=== PATIENT | female | born 1995 | race Two or more races ===

== ENCOUNTER 2016-08-18 09:07 | Emergency (ER) | payer MEDICAID ==
[~2016-08-18] VITALS: Ht 162.6 cm; Wt 49.9 kg
[~2016-08-18 09:07] MED LIST: PRENTAB28 PO
[2016-08-18 09:51] LABS: Basophils # (auto) 0 uL; Basophils % (auto) 0.5 % (0.0-2.0); Eosinophils # (auto) 0 uL; Eosinophils % (auto) 0.5 % (0.0-7.0); Hematocrit 34.9 % (36.0-46.0); Hemoglobin 11.5 g/dL (12.2-16.2); Lymphocytes % (auto) 32.2 % (10.0-50.0); Mean Corpuscular Hemoglobin 27.8 pg (28.0-32.0); Mean Corpuscular Volume 84.3 fL (80.0-100.0); Mean Platelet Volume 7.3 fL (7.4-10.4); Monocytes # (auto) 0.3 uL; Monocytes % (auto) 5.4 % (0.0-12.0); Neutrophils # (auto) 3.7 uL; Neutrophils % (auto) 61.4 % (37.0-80.0); Platelet Count (auto) 239 10^3/uL (140-450); Red Cell Distribution Width 12.7 % (11.6-16.0); White Blood Cell 6.1 10^3/uL (4.4-10.8)
[2016-08-18 10:11] LABS: Albumin 3.1 g/dL (3.4-5.0); BUN/Creatinine Ratio 18.6; Bilirubin, Total 0.2 mg/dL (0.2-1.0); Calcium 8.4 mg/dL (8.5-10.1); Potassium 3.6 mmol/L (3.5-5.1); Total Protein 6.1 g/dL (6.4-8.2)
[2016-08-18 11:17] LABS: Urine Bilirubin Negative (Negative); Urine Blood Negative /uL (Negative); Urine Color Yellow (Yellow); Urine Glucose Normal (Normal); Urine Ketone Negative (Negative); Urine Nitrite Negative (Negative); Urine RBC 1 /hpf (0 - 4); Urine Squamous Epithelial Cell FEW /hpf (<5); Urine Urobilinogen Normal (Negative)
[2016-08-18] MEDS ORDERED: SODIUM CHLORIDE 0.9% 1,000 ML IV ONE (11:30)
[2016-08-18 12:30] VITALS: BP 91/40
== END 2016-08-18 14:10 | disposition home or self-care (01) ==
LOC: EDUNIT# 09:07 → ER 09:10
DX: O23.42 Unspecified infection of urinary tract in pregnancy, second trimester (principal); R55 Syncope and collapse; Z3A.14 14 weeks gestation of pregnancy
CPT/HCPCS: 36415; 76805; 80053; 81001; 83735; 84702; 85025; 93005; 94761; 96360

== ENCOUNTER 2016-09-27 21:06 | Emergency (ER) | payer MEDICAID ==
[~2016-09-27] VITALS: Ht 160 cm; Wt 49.9 kg
[2016-09-27 21:57] VITALS: BP 100/63
[2016-09-27 22:22] LABS: Basophils # (auto) 0 uL; Basophils % (auto) 0.4 % (0.0-2.0); Eosinophils # (auto) 0 uL; Eosinophils % (auto) 0.4 % (0.0-7.0); Hematocrit 37.1 % (36.0-46.0); Hemoglobin 12.5 g/dL (12.2-16.2); Lymphocytes # (auto) 1.3 uL; Lymphocytes % (auto) 20.2 % (10.0-50.0); Mean Corpuscular Hemoglobin 29.2 pg (28.0-32.0); Mean Corpuscular Hgb Conc. 33.7 g/dL (32.0-36.0); Mean Corpuscular Volume 86.6 fL (80.0-100.0); Mean Platelet Volume 7.4 fL (7.4-10.4); Monocytes # (auto) 0.4 uL; Monocytes % (auto) 6.4 % (0.0-12.0); Neutrophils # (auto) 4.7 uL; Neutrophils % (auto) 72.6 % (37.0-80.0); Platelet Count (auto) 228 10^3/uL (140-450); Red Cell Distribution Width 14.4 % (11.6-16.0); White Blood Cell 6.5 10^3/uL (4.4-10.8)
[2016-09-27 22:31] LABS: INR 0.96 (0.9-1.15); Partial Thromboplastin Time 26.1 sec (22.64-33.71); Prothrombin Time 9.9 sec (9.37-12.3)
[2016-09-27 22:38] LABS: Albumin 3.3 g/dL (3.4-5.0); BUN/Creatinine Ratio 10.4
[2016-09-27 22:40] LABS: Bilirubin, Total 0.2 mg/dL (0.2-1.0); Total Protein 6.7 g/dL (6.4-8.2)
== END 2016-09-28 01:38 | disposition left against medical advice (07) ==
LOC: ER 21:10
DX: O26.891 Other specified pregnancy related conditions, first trimester (principal); R19.7 Diarrhea, unspecified; R55 Syncope and collapse; O21.9 Vomiting of pregnancy, unspecified; Z3A.19 19 weeks gestation of pregnancy; Z53.21 Procedure and treatment not carried out due to patient leaving prior to being seen by health care provider
CPT/HCPCS: 36415; 80053; 84702; 85025; 85610; 85730; 93005

== ENCOUNTER 2016-12-01 18:30 | Observation (INO) | payer MEDICAID ==
[2016-12-01 19:20] LABS: Urine Bilirubin Negative (Negative); Urine Color Yellow (Yellow); Urine Glucose Normal (Normal); Urine Ketone Negative (Negative); Urine Nitrite Negative (Negative); Urine RBC 162 /hpf (0 - 4); Urine Squamous Epithelial Cell FEW /hpf (<5); Urine Urobilinogen Normal (Negative); Urine pH 7.5 (5.0-8.0)
[2016-12-01 19:25] LABS: Urine Blood 2+ /uL (Negative)
== END 2016-12-01 20:10 | disposition home or self-care (01) | DRG 566 ==
LOC: LDRP 18:30
PROVIDERS: ADMIT Obstetrics & Gynecology; ATTEND Obstetrics & Gynecology
DX: O42.92 Full-term premature rupture of membranes, unspecified as to length of time between rupture and onset of labor (principal); Z3A.29 29 weeks gestation of pregnancy
CPT/HCPCS: 59025; 76815; 80307; 81001; 81002; G0378

== ENCOUNTER 2016-12-09 18:00 | Observation (INO) | payer MEDICAID ==
[~2016-12-09] VITALS: Ht 30.5 cm; Wt 0.5 kg
[2016-12-09] MEDS ORDERED: cefTRIAXone 1GM/50ML D5W 50 ML IV ONE (18:37)
[2016-12-09] MEDS ORDERED: SODIUM CHLORIDE 0.9% 500 ML IV ONE (18:37)
[2016-12-09 19:14] LABS: Urine Bilirubin Negative (Negative); Urine Blood Negative /uL (Negative); Urine Color Yellow (Yellow); Urine Glucose Normal (Normal); Urine Nitrite Negative (Negative); Urine RBC 1 /hpf (0 - 4); Urine Squamous Epithelial Cell FEW /hpf (<5); Urine WBC Clumps PRESENT /hpf (None Seen); Urine pH 6.5 (5.0-8.0)
[2016-12-09 19:15] LABS: Urine Ketone 3+ (Negative)
[2016-12-09 23:45] LABS: Vaginal Trichomonas Not Present; Vaginal WBC Many; Vaginal Yeast None Seen
[2016-12-09 23:46] LABS: Vaginal Bacteria Many; Vaginal Clue Cells None Seen; Vaginal Epithelial Cells Many; Vaginal RBC Rare
== END 2016-12-10 00:20 | disposition home or self-care (01) | DRG 566 ==
LOC: LDRP 18:00
PROVIDERS: ADMIT Specialist; ATTEND Specialist
DX: O26.893 Other specified pregnancy related conditions, third trimester (principal); E86.0 Dehydration; N89.8 Other specified noninflammatory disorders of vagina; R10.9 Unspecified abdominal pain; O47.9 False labor, unspecified; Z3A.30 30 weeks gestation of pregnancy
CPT/HCPCS: 59025; 76815; 80307; 81001; 81002; 87081; 87086; 87210; G0378; J0696; J7030; 96365; 96366

== ENCOUNTER 2017-01-17 09:40 | Inpatient (IN) | payer MEDICAID ==
[~2017-01-17] VITALS: Ht 30.5 cm; Wt 0.5 kg
[2017-01-17] VITALS (9 sets, daily range): BP systolic 90–98; BP diastolic 50–56
[2017-01-17] MEDS ORDERED: LACTATED RINGER'S 1,000 ML IV ONE ×2 (10:45→11:30)
[2017-01-17] MEDS ORDERED: TERBUTALINE SULFATE 1 MG/ML 1ML VIAL SC ONE (10:47)
[2017-01-17] MEDS: TERBUTALINE SULFATE 1 MG/ML 1ML VIAL SC PRN ×2 (11:06→11:57)
[2017-01-17 12:30] LABS: Urine Bilirubin Negative (Negative); Urine Blood Negative /uL (Negative); Urine Color Yellow (Yellow); Urine Glucose Normal (Normal); Urine Ketone 2+ (Negative); Urine Nitrite Negative (Negative); Urine RBC 3 /hpf (0 - 4); Urine Squamous Epithelial Cell FEW /hpf (<5); Urine Urobilinogen Normal (Negative); Urine pH 7.5 (5.0-8.0)
[2017-01-17] MEDS ORDERED: NIFEdipine 10 MG CAP PO SCH (13:12)
[2017-01-17] MEDS ORDERED: MICONAZOLE NITRATE 2 % VAGINAL CREAM 45 GM PV ONE (13:15)
[2017-01-17] MEDS ORDERED: cefTRIAXone 1GM/50ML D5W 50 ML IV ONE ×2 (14:30→15:45)
[2017-01-17] MEDS: SODIUM CHLORIDE 0.9% 1,000 ML IV SCH ×2 (14:57→16:30)
[2017-01-17 15:00] LABS: Basophils # (auto) 0 uL; CONDITION Y; Eosinophils # (auto) 0 uL; Hematocrit 32.7 % (36.0-46.0); Hemoglobin 11.2 g/dL (12.2-16.2); Lymphocytes # (auto) 0.8 uL; Lymphocytes % (auto) 5.5 % (10.0-50.0); Mean Corpuscular Hemoglobin 28.8 pg (28.0-32.0); Mean Corpuscular Hgb Conc. 34.3 g/dL (32.0-36.0); Mean Corpuscular Volume 84.1 fL (80.0-100.0); Mean Platelet Volume 7.4 fL (7.4-10.4); Monocytes # (auto) 0.7 uL; Monocytes % (auto) 5.1 % (0.0-12.0); Neutrophils # (auto) 12.6 uL; Neutrophils % (auto) 89.4 % (37.0-80.0); Platelet Count (auto) 222 10^3/uL (140-450); Red Cell Distribution Width 13.4 % (11.6-16.0); White Blood Cell 14.1 10^3/uL (4.4-10.8)
[2017-01-17] MEDS ORDERED: ACETAMINOPHEN 325 MG TAB PO PRN (15:45)
[2017-01-17] MEDS ORDERED: LACTATED RINGER'S 1,000 ML IV SCH (17:10)
[2017-01-17] MEDS ORDERED: HYDROCORTISONE SOD SUCC 100 MG/2ML INJ VIAL IV ONE (17:17)
[2017-01-17] MEDS ORDERED: fentaNYL CITRATE 100 MCG/2 ML VL ONE (17:17)
[2017-01-17] MEDS ORDERED: PROPOFOL 10 MG/ML 20 ML IV ONE (17:17)
[2017-01-17] MEDS ORDERED: ROCURONIUM 10MG/ML 10ML VIAL IV ONE (17:18)
[2017-01-17] MEDS ORDERED: SUCCINYLCHOLINE CHLORIDE 20 MG/ML 10ML VIAL IV ONE (17:20)
[2017-01-17] MEDS ORDERED: ETOMIDATE (2MG/ML) 20ML VIAL IV ONE (17:50)
[2017-01-17 17:52] LABS: Basophils # (auto) 0 uL; Basophils % (auto) 0.2 % (0.0-2.0); CONDITION Y; Eosinophils # (auto) 0 uL; Hematocrit 34.8 % (36.0-46.0); Hemoglobin 11.9 g/dL (12.2-16.2); Lymphocytes # (auto) 0.6 uL; Lymphocytes % (auto) 5.9 % (10.0-50.0); Mean Corpuscular Hemoglobin 28.6 pg (28.0-32.0); Mean Corpuscular Hgb Conc. 34.1 g/dL (32.0-36.0); Mean Platelet Volume 7.4 fL (7.4-10.4); Monocytes # (auto) 0.3 uL; Monocytes % (auto) 2.3 % (0.0-12.0); Neutrophils # (auto) 10.1 uL; Neutrophils % (auto) 91.6 % (37.0-80.0); Platelet Count (auto) 214 10^3/uL (140-450); Red Cell Distribution Width 13.4 % (11.6-16.0)
[2017-01-17] MEDS ORDERED: PHENYLEPHRINE HCL 10 MG/ML VL ONE (18:05)
[2017-01-17 18:07] LABS: INR 0.95 (0.9-1.15); Prothrombin Time 10.3 sec (9.37-12.3)
[2017-01-17 18:16] LABS: Albumin 2.5 g/dL (3.4-5.0); Bilirubin, Total 0.4 mg/dL (0.2-1.0); Calcium 7.9 mg/dL (8.5-10.1); Potassium 4.1 mmol/L (3.5-5.1); Total Protein 6.5 g/dL (6.4-8.2)
[2017-01-17] MEDS ORDERED: GLYCOPYRROLATE 0.2 MG/ML 1ML VIAL ONE (18:18)
[2017-01-17] MEDS ORDERED: NEOSTIGMINE 1 MG/ML INJ (10mg/10ML VIAL) ONE (18:18)
[2017-01-17] MEDS ORDERED: METOCLOPRAMIDE HCL 5MG/ml INJ 2ml VIAL ONE (18:19)
[2017-01-17] MEDS: LACTATED RINGER'S 1,000 ML IV SCH (18:38)
[2017-01-17] MEDS ORDERED: HYDROmorphone HCL 2 MG/ML VL ONE (18:41)
[2017-01-17] MEDS ORDERED: ONDANSETRON HCL 4 MG/2 ML VIAL IV PRN (18:45)
[2017-01-17] MEDS ORDERED: HYDROmorphone HCL 2 MG/ML VL IV PRN (18:45)
[2017-01-17] MEDS: HYDROmorphone HCL 2 MG/ML VL IV PRN ×2 (18:45→19:30)
[2017-01-17] MEDS ORDERED: ONDANSETRON HCL 4 MG/2 ML VIAL IV ONE (19:15)
[2017-01-17] MEDS ORDERED: OXYTOCIN 10UNIT/ML 1ML VIAL ONE (19:29)
[2017-01-17] MEDS: KETOROLAC TROMETH 30 MG/ML 1ML VIAL IV SCH (23:58)
[2017-01-18] VITALS (8 sets, daily range): BP systolic 86–101; BP diastolic 51–62
[2017-01-18] MEDS: LACTATED RINGER'S 1,000 ML IV SCH ×2 (02:38→10:38)
[2017-01-18] MEDS: KETOROLAC TROMETH 30 MG/ML 1ML VIAL IV SCH ×2 (05:44→14:00)
[2017-01-18 06:09] LABS: Basophils # (auto) 0 uL; CONDITION Y; Eosinophils # (auto) 0 uL; Hematocrit 26.6 % (36.0-46.0); Hemoglobin 9.3 g/dL (12.2-16.2); Lymphocytes # (auto) 1.1 uL; Lymphocytes % (auto) 7.1 % (10.0-50.0); Mean Corpuscular Hemoglobin 29.6 pg (28.0-32.0); Mean Corpuscular Hgb Conc. 34.8 g/dL (32.0-36.0); Mean Platelet Volume 7.4 fL (7.4-10.4); Monocytes # (auto) 0.5 uL; Monocytes % (auto) 3.4 % (0.0-12.0); Neutrophils # (auto) 13.9 uL; Neutrophils % (auto) 89.5 % (37.0-80.0); Platelet Count (auto) 227 10^3/uL (140-450); Red Cell Distribution Width 14.1 % (11.6-16.0); White Blood Cell 15.5 10^3/uL (4.4-10.8)
[2017-01-18] MEDS: cefTRIAXone 1GM/50ML D5W 50 ML IV SCH (09:00)
[2017-01-18] MEDS ORDERED: SIMETHICONE 80 MG CHEWABLE TABLET PO PRN (17:15)
[2017-01-18] MEDS ORDERED: HYDROcodone-ACET 5/325MG TAB PO PRN ×2 (17:15)
[2017-01-18] MEDS ORDERED: IBUPROFEN 800 MG TAB PO PRN (17:15)
[2017-01-18] MEDS: DOCUSATE SOD 100 MG CAP PO SCH (22:22)
[2017-01-18] MEDS: HYDROcodone-ACET 5/325MG TAB PO PRN (22:28)
[2017-01-19] VITALS (7 sets, daily range): BP systolic 81–96; BP diastolic 47–66
[2017-01-19] MEDS: IBUPROFEN 800 MG TAB PO PRN ×2 (05:04→17:05)
[2017-01-19] MEDS: HYDROcodone-ACET 5/325MG TAB PO PRN (07:10)
[2017-01-19] MEDS: cefTRIAXone 1GM/50ML D5W 50 ML IV SCH (09:46)
[2017-01-19] MEDS: DOCUSATE SOD 100 MG CAP PO SCH ×2 (09:46→22:19)
[2017-01-19] MEDS ORDERED: TETANUS-DIPTH-ACEL PERTUSSIS 0.5ML SYRG IM ONE (19:30)
[2017-01-20] MEDS: HYDROcodone-ACET 5/325MG TAB PO PRN ×2 (02:52→08:13)
[2017-01-20 03:57] VITALS: BP 98/64
[2017-01-20 08:00] VITALS: BP 86/52
[2017-01-20] MEDS ORDERED: MEASLES, MUMPS & RUBELLA VAC(MMRII) 0.5ML SC ONE (08:00)
[2017-01-20] MEDS: cefTRIAXone 1GM/50ML D5W 50 ML IV SCH (09:30)
[2017-01-20] MEDS: DOCUSATE SOD 100 MG CAP PO SCH (10:01)
[2017-01-20 12:10] VITALS: BP 100/60
[2017-01-20] MEDS: LACTATED RINGER'S 1,000 ML IV SCH (14:54)
== END 2017-01-20 13:10 | disposition home or self-care (01) | DRG 540 ==
LOC: EDBD 09:40 → OBSVTOIN 09:40 → LDRP 09:40
PROVIDERS: ADMIT Specialist; ATTEND Specialist
PROC: 10D00Z1 Extraction of Products of Conception, Low, Open Approach (ICD-10-PCS; principal; 2017-01-18)
DX: O76 Abnormality in fetal heart rate and rhythm complicating labor and delivery (principal); O41.1230 Chorioamnionitis, third trimester, not applicable or unspecified; O99.824 Streptococcus B carrier state complicating childbirth; Z37.0 Single live birth; Z3A.35 35 weeks gestation of pregnancy; Z23 Encounter for immunization
CPT/HCPCS: 36415; 51702; 59025; 76818; 80053; 81001; 81002; 84443; 85025; 85610; 85730; 86850; 86900; 86901; 87086; 87088; 87186; 90472; 90715; 96365; 96366; 96372; J0330; J0696; J1885; J2704

== ENCOUNTER 2018-09-28 13:10 | Observation (INO) | payer MEDICAID ==
[~2018-09-28] VITALS: Ht 157.5 cm; Wt 56.7 kg
[2018-09-28] MEDS ORDERED: BETAMETHASONE ACET (6MG/ML) 5ML VIAL IM ONE (14:15)
[2018-09-28] MEDS ORDERED: ceFAZolin 1GM/50ML 50 ML IV SCH (14:30)
[2018-09-28] MEDS ORDERED: TERBUTALINE SULFATE 1 MG/ML 1ML VIAL SC SCH (15:45)
[2018-09-28] MEDS ORDERED: LACTATED RINGER'S 1,000 ML IV SCH (18:15)
== END 2018-09-28 18:30 | disposition home or self-care (01) | DRG 566 ==
LOC: LDRP 13:10 → INTOOBSV 15:15 → OBSVTOIN 15:15
PROVIDERS: ADMIT Specialist; ATTEND Specialist
DX: O62.9 Abnormality of forces of labor, unspecified (principal); Z3A.35 35 weeks gestation of pregnancy
CPT/HCPCS: 51702; 59025; 76805; 81002; 96365; 96372; G0378; J0690; J0702; J3105; 96366

== ENCOUNTER 2018-09-29 14:05 | Observation (INO) | payer MEDICAID ==
[2018-09-29] MEDS ORDERED: BETAMETHASONE ACET (6MG/ML) 5ML VIAL IM ONE (14:30)
[2018-09-29] MEDS ORDERED: BETAMETHASONE ACET (6MG/ML) 5ML VIAL ONE (14:31)
== END 2018-09-29 15:00 | disposition home or self-care (01) | DRG 563 ==
LOC: LDRP 14:05
PROVIDERS: ADMIT Specialist; ATTEND Specialist
DX: O60.03 Preterm labor without delivery, third trimester (principal); Z3A.35 35 weeks gestation of pregnancy
CPT/HCPCS: 59025; 81002; 96372; G0378; J0702

== ENCOUNTER 2018-10-17 21:13 | Observation (INO) | payer MEDICAID ==
[2018-10-17 22:23] LABS: Urine WBC None Seen /hpf (0 - 5)
[2018-10-17 22:43] LABS: Urine Bacteria NONE SEEN /hpf (None Seen); Urine Blood Negative /uL (Negative); Urine Specific Gravity 1.005 (1.001-1.035)
== END 2018-10-17 23:10 | disposition home or self-care (01) | DRG 565 ==
LOC: LDRP 21:13
PROVIDERS: ADMIT Specialist; ATTEND Specialist
DX: O47.1 False labor at or after 37 completed weeks of gestation (principal); Z3A.37 37 weeks gestation of pregnancy
CPT/HCPCS: 59025; 76815; 81001; 81002; G0378

== ENCOUNTER 2018-10-21 09:45 | Observation (INO) | payer MEDICAID ==
[2018-10-21] MEDS ORDERED: LACTATED RINGER'S 1,000 ML IV ONE (10:45)
[2018-10-21] MEDS ORDERED: TERBUTALINE SULFATE 1 MG/ML 1ML VIAL SC SCH (10:45)
== END 2018-10-21 12:15 | disposition home or self-care (01) | DRG 566 ==
LOC: LDRP 09:45
PROVIDERS: ADMIT Specialist; ATTEND Specialist
DX: O62.9 Abnormality of forces of labor, unspecified (principal); O26.893 Other specified pregnancy related conditions, third trimester; N89.8 Other specified noninflammatory disorders of vagina; Z3A.38 38 weeks gestation of pregnancy
CPT/HCPCS: 59025; 81002; 96372; G0378; J3105; 96365

== ENCOUNTER 2018-10-26 04:14 | Inpatient (IN) | payer MEDICAID | END 2018-10-29 09:05 | disposition still patient (30) | LOC: LDRP 04:14 | PROC: 10D00Z1 Extraction of Products of Conception, Low, Open Approach (ICD-10-PCS; principal; 2018-10-26 07:25) | DX: O34.211 Maternal care for low transverse scar from previous cesarean delivery (principal); F53.0 Postpartum depression; Z37.0 Single live birth; Z3A.39 39 weeks gestation of pregnancy ==

== ENCOUNTER → 2021-12-31 | Emergency (ER) | payer MEDICAID ==
[~2021-12-31] VITALS: Ht 162.6 cm; Wt 61.2 kg
[2021-12-31 21:02] VITALS: BP 110/75
== END | disposition left against medical advice (07) ==
LOC: EDUNIT# 20:14 → EDBD 20:26 → ER 20:26
DX: R53.1 Weakness (principal); R55 Syncope and collapse; Z20.822 Contact with and (suspected) exposure to COVID-19; Z53.21 Procedure and treatment not carried out due to patient leaving prior to being seen by health care provider
CPT/HCPCS: 36415; 93005